=== PATIENT | female | born 1935 | race Caucasian/White ===

== ENCOUNTER 2016-10-12 14:21 | Inpatient (IN) | payer MEDICARE ==
[~2016-10-12] VITALS: Ht 160 cm; Wt 51.3 kg
--- NOTE | 2016-10-12 15:27 | RAD ---
Portable chest, 10/12/2016: History: Shortness of breath, productive cough Comparison is made to a study from 03/02/2015. The heart size and pulmonary vascularity are normal. There is calcific plaquing of the aorta. There are patchy infiltrates in the right lower chest suggesting pneumonia. The left lung is clear. No definite pleural fluid is seen. IMPRESSION: Mild patchy right basilar infiltrates suggesting pneumonia.
[2016-10-12 15:34] LABS: BASO # 0.1 x10^3/uL (0.0-0.2); BASO % 0 % (0-3); EOS % 0 % (0-3); HEMATOCRIT 32.4 % (36.0-47.0); HEMOGLOBIN 10.7 g/dL (12.0-15.5); LYMPH # 1.1 x10^3/uL (1.0-4.8); LYMPH % 9 % (24-48); MEAN CORPUSCULAR HEMOGLOBIN 30 pg (25-35); MEAN CORPUSCULAR HGB CONC 33 g/dL (31-37); MEAN CORPUSCULAR VOLUME 90 fL (79-100); MONO # 0.8 x10^3/uL (0.0-1.1); MONO % 7 % (0-9); NEUT # 10.3 x10^3uL (1.8-7.7); NEUT % 84 % (31-73); PLATELET COUNT 314 x10^3/uL (140-400); RED BLOOD COUNT 3.61 x10^6/uL (3.50-5.40); WHITE BLOOD COUNT 12.3 x10^3/uL (4.0-11.0)
[2016-10-12 15:47] LABS: CLARITY,URINE HAZY; COLOR,URINE YELLOW; GLUCOSE,URINE NEG (NEG)
[2016-10-12 15:48] LABS: BILIRUBIN,URINE NEG (NEG); NITRITE,URINE NEG (NEG); UROBILINOGEN,URINE 0.2 mg/dL (0.2 mg/dL)
[2016-10-12 15:49] LABS: BACTERIA,URINE 0 /HPF (0-FEW); SQUAMOUS EPITHELIAL CELL,UR MOD /LPF
[2016-10-12 15:50] LABS: ALBUMIN 2.6 g/dL (3.4-5.0); ALBUMIN/GLOBULIN RATIO 0.6 (1.0-1.7); CREATININE 1.4 mg/dL (0.6-1.0); POTASSIUM 3.2 mmol/L (3.5-5.1); TOTAL BILIRUBIN 0.4 mg/dL (0.2-1.0); TOTAL PROTEIN 7.1 g/dL (6.4-8.2)
[2016-10-12] MEDS ORDERED: IPRATRPIUM/ALBUTEROL 0.5/2.5MG 3 ML NEBU. NEB ONE (15:50)
[2016-10-12] MEDS ORDERED: IV NORMAL SALINE 1,000ML 1,000 ML IV ONE ×2 (15:50→16:30)
--- NOTE | 2016-10-12 15:55 | ED.ADGEN ---
Past History Past Medical History: Anxiety, Arthritis, COPD, Hypertension Past Surgical History: Appendectomy, Cancer Surgery, Colectomy, Tonsillectomy Alcohol Use: Heavy Drug Use: None Adult General HPI HPI Patient is an 81-year-old woman, history of hypertension, COPD, who presents to the emergency department with a complaint of productive cough and fever over the past 6 days. Patient has been using nebulizer treatments at home without relief, noted a cough that is productive of green sputum, with increasing shortness of breath, now complaining also of rib pain in the left side after repetitive coughing. Denies any weakness, numbness or tingling, complains of generalized malaise and weakness, last fever was up to 102, was yesterday, is also last times she received any antipyretics. Patient denies any urinary complaints, any nausea or vomiting, any diarrhea, any falls, any lightheadedness or dizziness. She states she is compliant with her blood pressure medications, did receive her Coreg this morning. Patient's daughter-in- law who is her commercial food instructor and a nurse in the ICU at [employer] is at bedside. Temperature is 99.0 orally, without receiving antipyretics since the day before , blood pressures are 160s over 70s, heart rate is in the 70s, oxygen saturation is between 92-95 on room air, respiratory rate in the mid 20s. Review of Systems Review of Systems Constitutional: Denies fever or chills [] Eyes: Denies change in visual acuity, redness, or eye pain [] HENT: Denies nasal congestion or sore throat [] Respiratory: Productive cough with shortness of breath 6 days. Soreness on the left ribs. Cardiovascular: No additional information not addressed in HPI [] GI: Denies abdominal pain, nausea, vomiting, bloody stools or diarrhea [] : Denies dysuria or hematuria [] Musculoskeletal: Denies back pain or joint pain [] Integument: Denies rash or skin lesions [] Neurologic: Denies headache, focal weakness or sensory changes [] Endocrine: Denies polyuria or polydipsia [] Current Medications Current Medications Current Medications Medications (Trade) Dose Ordered Sig/Mayela Start Time Stop Time Status Last Admin Dose Admin Acetaminophen (Tylenol) 650 mg PRN Q4HRS PRN 10/12/16 16:45 10/13/16 16:44 Albuterol/ Ipratropium (Duoneb) 3 ml RTQID 10/12/16 20:00 10/13/16 19:59 Azithromycin 500 mg/Sodium Chloride 250 ml @ 250 mls/hr Q24H 10/12/16 16:10 10/15/16 16:09 Ceftriaxone Sodium 1 gm/ Sodium Chloride 100 ml @ 200 mls/hr Q24H 10/12/16 16:10 10/12/16 16:15 200 MLS/HR Ceftriaxone Sodium (Rocephin) 1 gm STK-MED ONCE 10/12/16 16:09 10/12/16 16:10 DC Methylprednisolone Sodium Succinate (SOLU-Medrol 125MG VIAL) 125 mg 1X ONCE 10/12/16 17:00 10/12/16 17:01 Ondansetron HCl (Zofran) 4 mg PRN Q4HRS PRN 10/12/16 16:45 10/13/16 16:44 Potassium Chloride (KCl Oral Soln) 40 meq 1X ONCE 10/12/16 16:50 10/12/16 16:51 Sodium Chloride 1,000 ml @ 125 mls/hr 1X ONCE 10/12/16 16:30 10/13/16 00:29 Allergies Allergies Allergies Coded Allergies Type Severity Reaction Last Updated Verified lidocaine Adverse Reaction Intermediate 03/20/14 Yes Physical Exam Physical Exam Constitutional: Well developed, well nourished, no acute distress, non-toxic appearance. [] HENT: Normocephalic, atraumatic, bilateral external ears normal, oropharynx moist, no oral exudates, nose normal. [] Eyes: PERRLA, EOMI, conjunctiva normal, no discharge. [] Neck: Normal range of motion, no tenderness, supple, no stridor. [] Cardiovascular:Heart rate regular rhythm, no murmur [] Lungs & Thorax: Bilateral breath sounds clear to auscultation [] Abdomen: Bowel sounds normal, soft, no tenderness, no masses, no pulsatile masses. [] Skin: Warm, dry, no erythema, no rash. [] Back: No tenderness, no CVA tenderness. [] Extremities: No tenderness, no cyanosis, no clubbing, ROM intact, no edema. [] Neurologic: Alert and oriented X 3, normal motor function, normal sensory function, no focal deficits noted. [] Psychologic: Affect normal, judgement normal, mood normal. [] Current Patient Data Vital Signs Vital Signs Date Time Temp Pulse Resp B/P (MAP) Pulse Ox O2 Delivery O2 Flow Rate FiO2 10/12/16 14:30 99.0 87 18 95 Room Air Lab Results Laboratory Tests Test 10/12/16 15:10 10/12/16 16:00 White Blood Count 12.3 x10^3/uL (4.0-11.0) H Red Blood Count 3.61 x10^6/uL (3.50-5.40) Hemoglobin 10.7 g/dL (12.0-15.5) L Hematocrit 32.4 % (36.0-47.0) L Mean Corpuscular Volume 90 fL (79-100) Mean Corpuscular Hemoglobin 30 pg (25-35) Mean Corpuscular Hemoglobin Concent 33 g/dL (31-37) Red Cell Distribution Width 14.0 % (11.5-14.5) Platelet Count 314 x10^3/uL (140-400) Neutrophils (%) (Auto) 84 % (31-73) H Lymphocytes (%) (Auto) 9 % (24-48) L Monocytes (%) (Auto) 7 % (0-9) Eosinophils (%) (Auto) 0 % (0-3) Basophils (%) (Auto) 0 % (0-3) Neutrophils # (Auto) 10.3 x10^3uL (1.8-7.7) H Lymphocytes # (Auto) 1.1 x10^3/uL (1.0-4.8) Monocytes # (Auto) 0.8 x10^3/uL (0.0-1.1) Eosinophils # (Auto) 0.0 x10^3/uL (0.0-0.7) Basophils # (Auto) 0.1 x10^3/uL (0.0-0.2) Urine Collection Type Unknown Urine Color Yellow Urine Clarity Hazy Urine pH 6.0 Urine Specific [place] 1.020 Urine Protein 100 mg/dl (NEG-TRACE) Urine Glucose (UA) Neg mg/dL (NEG) Urine Ketones (Stick) Trace mg/dL (NEG) Urine Blood Small (NEG) Urine Nitrite Neg (NEG) Urine Bilirubin Neg (NEG) Urine Urobilinogen Dipstick 0.2 mg/dL (0.2 mg/dL) Urine Leukocyte Esterase Trace (NEG) Urine RBC 6-10 /HPF (0-2) Urine WBC 11-20 /HPF (0-4) Urine Squamous Epithelial Cells Mod /LPF Urine Bacteria 0 /HPF (0-FEW) Urine Mucus Mod /LPF Sodium Level 141 mmol/L (136-145) Potassium Level 3.2 mmol/L (3.5-5.1) L Chloride Level 103 mmol/L (98-107) Carbon Dioxide Level 29 mmol/L (21-32) Anion Gap 9 (6-14) Blood Urea Nitrogen 19 mg/dL (7-20) Creatinine 1.4 mg/dL (0.6-1.0) H Estimated GFR (Cockcroft-Gault) 36.0 BUN/Creatinine Ratio 14 (6-20) Glucose Level 134 mg/dL (70-99) H Calcium Level 9.0 mg/dL (8.5-10.1) Total Bilirubin 0.4 mg/dL (0.2-1.0) Aspartate Amino Transferase (AST) 20 U/L (15-37) Alanine Aminotransferase (ALT) 18 U/L (14-59) Alkaline Phosphatase 91 U/L (46-116) Troponin I Quantitative < 0.017 ng/mL (0-0.055) EO-Auu-S-Type Natriuretic Peptide 2637 pg/mL (0-449) H Total Protein 7.1 g/dL (6.4-8.2) Albumin 2.6 g/dL (3.4-5.0) L Albumin/Globulin Ratio 0.6 (1.0-1.7) L Lactic Acid Level 0.7 mmol/L (0.4-2.0) EKG EKG EC: Sinus rhythm, heart rate 78 bpm, upright axis, QTC of 420, CO 140, QRS of 88, [] Radiology/Procedures Radiology/Procedures [][address] [address] IMAGING REPORT Signed PATIENT: RUBY MAJOR ACCOUNT: [id number] : 1935 LOCATION: ER AGE: 81 SEX: F EXAM STATUS: REG ER ORD. PHYSICIAN: AMEE BREAUX DO REASON: SOB/productive cough PROCEDURE: PORTABLE CHEST 1V Portable chest, 10/12/2016: History: Shortness of breath, productive cough Comparison is made to a study from 03/02/2015. The heart size and pulmonary vascularity are normal. There is calcific plaquing of the aorta. There are patchy infiltrates in the right lower chest suggesting pneumonia. The left lung is clear. No definite pleural fluid is seen. IMPRESSION: Mild patchy right basilar infiltrates suggesting pneumonia. DICTATED AND SIGNED BY: TEX LOPEZ MD DATE: 10/12/16 1524 CC: MARISOL TRISTAN MD; AMEE BREAUX DO ~ Course & Med Decision Making Course & Med Decision Making Pertinent Labs and Imaging studies reviewed. (See chart for details) Patient noted to have mild rales at bases bilaterally, rhonchi in the right lung mid region, oxygen saturation is between 92-95% on room air respiratory rate is in the mid 20s. Patient noted to be expressing active and the monitor, occasional PVCs, and sinus arrhythmia. Patient received DuoNeb treatment in the ED, states that she is feeling better after the DuoNeb treatment, no significant lung changes noted. Chest x-ray reveals a right sided infiltrate consistent with pneumonia, after discussion with family and patient, patient has had no recent antibiotic use, hospitalization, or other concerning history, is consistent with community-acquired pneumonia. Lactic of 0.7, patient with hemoglobin of 10.7, which is around her baseline, noted to have a creatinine of 1.4, with a BUN of 19, potassium of 3.2. Patient's potassium repleted orally in the emergency department, IV fluids initiated, and then adjusted after proBNP of 2600 resulted, patient's lungs remain clear, adjusted to 500 L bolus, and is [place] 125 ML's an hour, as she clinically and biochemically dehydrated.Patient is agreeable for admission to the hospital for continued treatment and monitoring, due to generalized weakness, and worsening shortness of breath, with concern for continued decline, and also arrhythmia stated noted on monitor which is new for patient, may be due in part to the patient's illness and hypokalemia. Patient initiated on ceftriaxone and azithromycin per the community acquired pneumonia protocol. I did discuss findings as above with Dr. Begum of internal medicine, patient accepted to his service as a full admission to the medical telemetry floor for treatment acquired pneumonia, COPD , patient ordered DuoNeb's, steroids, continued antibiotics, IV fluids, repeat laboratory studies and cardiology consultation with bridge orders entered per discussion. Final Impression Final Impression [] Problems: Dragon Disclaimer Dragon Disclaimer This electronic medical record was generated, in whole or in part, using a voice recognition dictation system. Departure: Impression: Primary Impression: Community acquired pneumonia Additional Impression: COPD (chronic obstructive pulmonary disease) Disposition: 09 ADMITTED INPATIENT Condition: IMPROVED AMEE BREAUX DO Oct 12, 2016 15:55
[2016-10-12] MEDS ORDERED: IV NORMAL SALINE 100ML 100 ML ONE (16:09)
[2016-10-12] MEDS ORDERED: cefTRIAXone SODIUM 1 GM VIAL IV ONE (16:09)
[2016-10-12] MEDS ORDERED: AZITHROMYCIN 500 MG in IV NORMAL SALINE 250ML 250 ML IV SCH (16:10)
[2016-10-12] MEDS ORDERED: IV NORMAL SALINE 500ML 500 ML IV ONE (16:30)
[2016-10-12] MEDS ORDERED: ACETAMINOPHEN 325 MG TABLET PO PRN (16:45)
[2016-10-12] MEDS ORDERED: ONDANSETRON PF 4 MG/2 ML VIAL. IV PRN (16:45)
[2016-10-12] MEDS ORDERED: POTASSIUM CHLORIDE 20 MEQ/15 ML ORAL LIQUID. PO ONE (16:50)
[2016-10-12] MEDS ORDERED: methylPREDNISolone SOD SUCC PF 125 MG/2 ML VIAL. IV ONE (17:00)
[2016-10-12] MEDS ORDERED: NICOTINE 7MG PATCH. TD PRN (17:30)
[2016-10-12] MEDS ORDERED: IV NORMAL SALINE 250ML 250 ML ONE (17:32)
[2016-10-12] MEDS ORDERED: AZITHROMYCIN 500 MG VIAL. IV ONE (17:32)
--- NOTE | 2016-10-12 17:41 | EKG ---
[address] [address] Test Date: 2016-10-12 Test Time: 14:59:57 Pat Name: RUBY MAJOR Department: Room: Gender: F Labeling Machine Operator: RAMSEY : 1935 Requested By: AMEE BREAUX Order Number: [id number] Reading MD: Measurements Intervals [place] Rate: 78 P: 64 ND: 140 QRS: 64 QRSD: 88 T: 68 QT: 372 QTc: 428 Interpretive Statements SINUS RHYTHM VENTRICULAR PREMATURE COMPLEX(ES) T ABNORMALITY IN INFERIOR LEADS NON SPECIFIC ST DEPRESSION RI6.01 Unconfirmed report No previous ECG available for comparison
[2016-10-12 18:29] VITALS: BP 137/70
[2016-10-12] MEDS ORDERED: CARV6.25 PO ×2 (18:38)
[2016-10-12] MEDS ORDERED: LISI10TA2 PO (18:38)
[2016-10-12] MEDS ORDERED: ASPI-630 PO (18:38)
[2016-10-12] MEDS ORDERED: LISI-338 PO (18:38)
[2016-10-12] MEDS: CARVEDILOL 6.25 MG TABLET PO SCH (20:11)
[2016-10-12] MEDS: LISINOPRIL 5 MG TABLET. PO SCH (20:11)
[2016-10-12] MEDS: IPRATRPIUM/ALBUTEROL 0.5/2.5MG 3 ML NEBU. NEB SCH (20:34)
[2016-10-12 22:06] VITALS: BP 116/66
--- NOTE | 2016-10-13 01:45 | ACF ---
Admission Criteria Forms PNEUMONIA, COMMUNITY ACQUIRED Clinical Indications for Admission to Inpatient Care (Place 'X' for any and all applicable criteria): Admission to inpatient status for two midnights or more is indicated for ANY ONE of the following (1)(2)(3): [ ]I. Hypoxia [ ]II. Hemodynamic instability [ ]III. Altered mental status that is severe or persistent [ ]IV. Dehydration that is severe or persistent. [ ]V. Bacteremia [X]. Moderate-risk or high-risk category patients (Pneumonia Severity Index ( PSI) class IV or V, or CURB-65 score of 3 or greater). [ ]VII. Intermediate-risk category patients (e.g., PSI class III or CURB-65 score 2) who do not improve with outpatient and observation care treatment [ ]VIII. Outpatient treatment failure as indicated by 1 or more of the following(9): [ ]a) Failure to respond to antibiotic (eg, resistant organism) [ ]b) Clinically significant adverse effects from medication (eg, vomiting) [ ]c) Complications of pneumonia (eg, empyema, bacteremia) [ ]d) Significant worsening of comorbid cond necessitating inpatient care (eg, chronic heart failure) [ ]IX. Appropriate diagnostic testing and treatment unavailable in outpatient or recovery facility (eg, testing or infection control measures unavailable) [ ]X. Respiratory finding (eg. tachypnea) that do not respond to outpatient observation care treatment [ ]XI. Complicated pleural effusions (eg, emphysema, exudative, loculated) [ ]XII. Immunocompromised patients (e.g., AIDS, chronic steroid use) at moderate or high risk based on clinical evaluation. Extended stay beyond goal length of stay may be needed for (20) [ ]a) Unclear diagnosis [ ]b) Pleural disease [ ]c) Severe pneumonia or treatment failure [ ]d) Respiratory failure [ ]e) New onset hyponatremia (serum Na concentration less than 135 mEq/L(mmol/ L) [ ]f) Clinically significant comorbid illness (eg, heart failure, atrial fibrillation with rapid heart rate, alcohol withdrawal, renal insufficiency)(34)(35) [ ]g) Comorbid acute exacerbation of COPD(36) [ ]h) Concomitant diagnosis of malignancy [ ]i) Concomitant altered mental status [ ]j) Culture-identified Gram-negative or antibiotic-resistant organism (eg, Pseudomonas, methicillin-resistant Staphylococcus aureus MRSA)(30) [ ]k) Healthcare-associated pneumonia (36) The original [facility] [employer] content created by [facility] has been revised. The portions of the content which have been revised are identified through the use of italic text, and [facility] has neither reviewed nor approved the modified material. All other unmodified content is copyright [facility]. Please see references footnoted in the original [facility] edition 2015 Admission Criteria Met?: Yes LO WEBB Oct 13, 2016 01:45
[2016-10-13 03:07] VITALS: BP 177/68
[2016-10-13] MEDS: IPRATRPIUM/ALBUTEROL 0.5/2.5MG 3 ML NEBU. NEB SCH ×4 (05:51→20:43)
[2016-10-13 05:58] VITALS: BP 177/73
[2016-10-13 06:07] LABS: CREATININE 1.1 mg/dL (0.6-1.0); GFR 47.6; POTASSIUM 3.9 mmol/L (3.5-5.1)
[2016-10-13 06:16] LABS: BASO % 0 % (0-3); EOS % 0 % (0-3); HEMATOCRIT 26.1 % (36.0-47.0); HEMOGLOBIN 8.8 g/dL (12.0-15.5); LYMPH # 0.5 x10^3/uL (1.0-4.8); LYMPH % 7 % (24-48); MEAN CORPUSCULAR HEMOGLOBIN 30 pg (25-35); MEAN CORPUSCULAR HGB CONC 34 g/dL (31-37); MEAN CORPUSCULAR VOLUME 90 fL (79-100); MONO # 0.1 x10^3/uL (0.0-1.1); MONO % 1 % (0-9); NEUT # 6.8 x10^3uL (1.8-7.7); NEUT % 92 % (31-73); PLATELET COUNT 249 x10^3/uL (140-400); RED BLOOD COUNT 2.91 x10^6/uL (3.50-5.40); RED CELL DISTRIBUTION WIDTH 13.6 % (11.5-14.5); WHITE BLOOD COUNT 7.4 x10^3/uL (4.0-11.0)
[2016-10-13] MEDS: CARVEDILOL 6.25 MG TABLET PO SCH ×2 (08:21→20:25)
[2016-10-13] MEDS: ASPIRIN 81 MG TAB.CHEW PO SCH (08:21)
[2016-10-13] MEDS: guaiFENesin DM 200MG/20MG 10 ML SYRUP PO PRN ×2 (08:23→12:30)
[2016-10-13] MEDS ORDERED: LISINOPRIL 10 MG TABLET PO SCH (09:00)
[2016-10-13] MEDS ORDERED: chlordiazePOXIDE HCL 25 MG CAPSULE PO PRN (10:45)
--- NOTE | 2016-10-13 11:14 | HP ---
ADMIT DATE: 10/13/2016 HISTORY OF PRESENT ILLNESS: The patient is an 81-year-old female patient, who came to the Emergency Room with complaints of recurrent bouts of cough with greenish sputum that has been going on for almost 6 days now. She has been using her nebulizer treatment without much improvement. She also complained of increasing shortness of breath and chest pain, mostly in the left side after repetitive bouts of cough. Denies any localized weakness, numbness and tingling, but did complain of generalized malaise and generalized weakness, fever up to 102 Fahrenheit. She was evaluated in the Emergency Room and was found to have leukocytosis. Her chest x-ray showed mild patchy right-sided infiltrate suggesting pneumonia, was admitted to be treated for community-acquired pneumonia and COPD exacerbations. PAST MEDICAL HISTORY: Significant for hypertension, chronic obstructive pulmonary disease, generalized osteoarthritis and anxiety. PAST SURGICAL HISTORY: Significant for appendectomy, colectomy, tonsillectomy. FAMILY HISTORY: Unremarkable. SOCIAL HISTORY: She lives with her son and his girlfriend. She apparently drinks alcohol heavily, but does not smoke or use any recreational drugs. ALLERGIES: She is allergic to LIDOCAINE. MEDICATIONS: She is currently on following medications: Aspirin 81 mg once a day. Carvedilol 6.25 mg she takes one and a half tablet daily and 6.25 mg at bedtime. She is on lisinopril 10 mg daily and 5 mg at bedtime. REVIEW OF SYSTEMS: As per history of present illness. PHYSICAL EXAMINATION: GENERAL: On arrival to the Emergency Room, the patient was pale, cachectic, but not jaundiced, cyanosis or thyromegaly. No jugular venous distention. No lower limb edema. VITAL SIGNS: Her heart rate was , blood pressure was 99.7, respiratory rate was 20 and oxygen saturation was 94% on room air. HEAD, EYES, EARS, NOSE AND THROAT: Showed normocephalic, atraumatic. NECK: Supple. HEART: Showed normal first and second heart sounds with no gallop, rub or murmur. CHEST: Showed central trachea, equally reduced expansion, reduced air entry, vesicular crepitation mostly in the right side posteriorly. I could not really appreciate any rhonchi. ABDOMEN: Scaphoid, soft, nontender. NEUROLOGIC: She is awake, alert, responding appropriately. Cranial nerves intact. She moves her extremities without difficulty. She ambulates without assistance or assistive devices. LABORATORY DATA: While in the Emergency Room, she had lab work done, which showed a white cell count 12,300, hemoglobin 10.7, hematocrit 32.4, MCV 90 and platelet count of 314,000. Her chemistry showed a serum sodium 141, potassium 3.2, chloride 103, bicarbonate 29, anion gap of 9, BUN 19, creatinine 1.4, estimated GFR was 36 mL per minute. Her glucose was 134, lactic acid was 0.7, calcium was 9. Total bilirubin, AST, ALT, alkaline phosphatase were normal. Her beta natriuretic peptide was 2637. Total protein was 7.1, albumin was 2.6. Urinalysis was essentially unremarkable and urine was actually negative for nitrite. There was trace leukocyte. There was only 11 to 20 wbc's, no bacteria. Chest x-ray showed that she has mild patchy right basilar infiltrate suggestive of pneumonia. The heart size and pulmonary vascularity are normal. There is ischemic plaquing in the aorta. The left lung is clear. No definite pleural fluid or pneumothorax seen. ASSESSMENT AND PLAN: The patient was admitted with diagnosis of community-acquired pneumonia, chronic obstructive pulmonary disease, hypertension, anxiety, generalized osteoarthritis. She was started on IV Rocephin and Zithromax. We will follow her labs closely. She drinks alcohol heavily, something that was not made aware of, will start her also on alcohol withdrawal protocol and will evaluate her tomorrow and if she seemed to be responding well and continued to be afebrile with normal white cell count, we can discharge her home to continue on oral antibiotics. DEEPIKA GREENFIELD MD DR: KATERIN/dimitry JOB#: [id number] / [id number]
[2016-10-13] MEDS: FOLIC ACID 1 MG TABLET PO SCH (11:40)
[2016-10-13] MEDS: MULTIVITAMIN with MINERAL TABLET. PO SCH (11:40)
[2016-10-13 11:54] VITALS: BP 181/77
[2016-10-13] MEDS ORDERED: HYDR50CA2 PO (12:34)
--- NOTE | 2016-10-13 13:41 | PDOC2 ---
CONSULT Date of Admission DATE: 10/13/16 TIME: 13:30 Reason for Consult: chest pain Referring Physician: Dr. Begum Chief Complaint Chest pain Source: Patient Problem List Problems Medical Problems: (1) Community acquired pneumonia Status: Acute (2) COPD (chronic obstructive pulmonary disease) Status: Acute History of Present Illness 81 y/o female presented with 6-7 day history of cough productive of greenish sputum and dyspnea. She was diagnosed with community acquired pneumonia and acute COPD exacerbation and admitted for further management. She is feeling better since admission. Cardiology has been consulted for chest pain that started after repeated bouts of coughing. Past Medical History Hypertension COPD Osteoarthritis Anxiety Past Surgical History Appendectomy Cholecystectomy Tonsillectomy Social History Admitted to smoking cigarettes and moderate to heavy alcohol use. Denied any drug use Current Medications Current Medications Albuterol/ Ipratropium (Duoneb) 3 ml 1X ONCE NEB Last administered on 14:55; Start 10/12/16 at 15:50; Stop 10/12/16 at 15:51; Status DC Sodium Chloride 1,000 ml @ 1,000 mls/hr 1X ONCE IV Last administered on 16:00; Start 10/12/16 at 15:50; Stop 10/12/16 at 16:26; Status DC Ceftriaxone Sodium 1 gm/ Sodium Chloride 100 ml @ 200 mls/hr Q24H IV Last administered on 10/12/16 16:15; Start 10/12/16 at 16:10 Azithromycin 500 mg/Sodium Chloride 250 ml @ 250 mls/hr Q24H IV Last administered on 10/12/16 17:46; Start 10/12/16 at 16:10; Stop 10/13/16 at 11:26 ; Status DC Sodium Chloride 100 ml @ As Directed STK-MED ONCE .ROUTE ; Start 10/12/16 at 16 :09; Stop 10/12/16 at 16:10; Status DC Ceftriaxone Sodium (Rocephin) 1 gm STK-MED ONCE IV ; Start 10/12/16 at 16:09; Stop 10/12/16 at 16:10; Status DC Potassium Chloride (KCl Oral Soln) 40 meq 1X ONCE PO Last administered on 10/12 16:44; Start 10/12/16 at 16:50; Stop 10/12/16 at 16:51; Status DC Sodium Chloride 500 ml @ 0 mls/hr 1X ONCE IV ; Start 10/12/16 at 16:30; Stop at 16:31; Status DC Sodium Chloride 1,000 ml @ 125 mls/hr 1X ONCE IV Last administered on 19:38; Start 10/12/16 at 16:30; Stop 10/13/16 at 00:29; Status DC Ondansetron HCl (Zofran) 4 mg PRN Q4HRS PRN IV NAUSEA/VOMITING; Start 10/12/16 at 16:45; Stop 10/13/16 at 16:44 Acetaminophen (Tylenol) 650 mg PRN Q4HRS PRN PO FEVER; Start 10/12/16 at 16:45 ; Stop 10/13/16 at 16:44 Albuterol/ Ipratropium (Duoneb) 3 ml RTQID NEB Last administered on 10/13/16 11:30; Start 10/12/16 at 20:00; Stop 10/13/16 at 19:59 Methylprednisolone Sodium Succinate (SOLU-Medrol 125MG VIAL) 125 mg 1X ONCE IV Last administered on 10/12/16 17:00; Start 10/12/16 at 17:00; Stop 10/12/16 at 17:01; Status DC Nicotine (Nicoderm Cq 7mg) 1 patch PRN DAILY PRN TD SMOKING CESSATION; Start at 17:30 Azithromycin (Zithromax) 500 mg STK-MED ONCE IV ; Start 10/12/16 at 17:32; Stop 10/12/16 at 17:33; Status DC Sodium Chloride 250 ml @ As Directed STK-MED ONCE .ROUTE ; Start 10/12/16 at 17 :32; Stop 10/12/16 at 17:33; Status DC Aspirin (Children'S Aspirin) 81 mg DAILY PO Last administered on 10/13/16 08: 21; Start 10/13/16 at 09:00 Carvedilol (Coreg) 6.25 mg HS PO Last administered on 10/12/16 20:11; Start at 21:00 Carvedilol (Coreg) 9.375 mg DAILY PO Last administered on 10/13/16 08:21; Start 10/13/16 at 09:00 Lisinopril (Prinivil) 5 mg HS PO Last administered on 10/12/16 20:11; Start at 21:00 Lisinopril (Prinivil) 10 mg DAILY PO Last administered on 10/13/16 08:22; Start 10/13/16 at 09:00 Guaifenesin (Robitussin Dm) 5 ml PRN Q4HRS PRN PO COUGH Last administered on 12:30; Start 10/13/16 at 08:15 Multivitamins/ Calcium (Thera-M Plus) 1 tab DAILY PO Last administered on 11:40; Start 10/13/16 at 11:10 Folic Acid (Folic Acid) 1 mg DAILY PO Last administered on 10/13/16 11:40; Start 10/13/16 at 11:10 Thiamine HCl 100 mg DAILY IM ; Start 10/14/16 at 11:10; Stop 10/19/16 at 11:09 Chlordiazepoxide (Librium) 50 mg PRN Q1HR PRN PO For CIWA 8-14; Start 10/13/16 at 10:45; Status Future Hold Azithromycin (Zithromax) 500 mg Q24H PO ; Start 10/13/16 at 16:00 Hydroxyzine Pamoate (Vistaril) 50 mg QHS PO ; Start 10/13/16 at 21:00 Active Scripts Active Reported Hydroxyzine Pamoate 50 Mg Capsule 50 Mg PO DAILY Aspirin 81 Mg Tab.chew 81 Mg PO DAILY Coreg (Carvedilol) 6.25 Mg Tablet 1 Tab PO HS Coreg (Carvedilol) 6.25 Mg Tablet 1.5 Tab PO DAILY Lisinopril 5 Mg Tablet 1 Tab PO HS Lisinopril 10 Mg Tablet 1 Tab PO DAILY Allergies: Coded Allergies: lidocaine (Verified Adverse Reaction, Intermediate, 03/20/14) PSYCHOLOGICAL ROS: No: Hallucinations Eyes: No: Loss of vision HEENT: No: Epistaxis Respiratory: YES: Cough, Shortness of breath Cardiovascular: yes: Chest Pain, No: Palpitations Gastrointestinal: No: Vomiting, Diarrhea Neurological: No: Seizures Skin: No: Rash General: Alert, No acute distress HEENT: Atraumatic, PERRLA Lungs: Other (scattered crepts bilaterally) Heart: Regular rate Abdomen: Soft Extremities: No edema Psych/Mental Status: Mood NL VITALS Vital Signs Date Time Temp Pulse Resp B/P (MAP) Pulse Ox O2 Delivery O2 Flow Rate FiO2 10/13/16 11:54 97.6 74 16 181/77 (111) 97 Room Air Labs Laboratory Tests Test 10/12/16 15:10 10/12/16 16:00 10/13/16 05:45 White Blood Count 12.3 x10^3/uL (4.0-11.0) 7.4 x10^3/uL (4.0-11.0) Red Blood Count 3.61 x10^6/uL (3.50-5.40) 2.91 x10^6/uL (3.50-5.40) Hemoglobin 10.7 g/dL (12.0-15.5) 8.8 g/dL (12.0-15.5) Hematocrit 32.4 % (36.0-47.0) 26.1 % (36.0-47.0) Mean Corpuscular Volume 90 fL (79-100) 90 fL (79-100) Mean Corpuscular Hemoglobin 30 pg (25-35) 30 pg (25-35) Mean Corpuscular Hemoglobin Concent 33 g/dL (31-37) 34 g/dL (31-37) Red Cell Distribution Width 14.0 % (11.5-14.5) 13.6 % (11.5-14.5) Platelet Count 314 x10^3/uL (140-400) 249 x10^3/uL (140-400) Neutrophils (%) (Auto) 84 % (31-73) 92 % (31-73) Lymphocytes (%) (Auto) 9 % (24-48) 7 % (24-48) Monocytes (%) (Auto) 7 % (0-9) 1 % (0-9) Eosinophils (%) (Auto) 0 % (0-3) 0 % (0-3) Basophils (%) (Auto) 0 % (0-3) 0 % (0-3) Neutrophils # (Auto) 10.3 x10^3uL (1.8-7.7) 6.8 x10^3uL (1.8-7.7) Lymphocytes # (Auto) 1.1 x10^3/uL (1.0-4.8) 0.5 x10^3/uL (1.0-4.8) Monocytes # (Auto) 0.8 x10^3/uL (0.0-1.1) 0.1 x10^3/uL (0.0-1.1) Eosinophils # (Auto) 0.0 x10^3/uL (0.0-0.7) 0.0 x10^3/uL (0.0-0.7) Basophils # (Auto) 0.1 x10^3/uL (0.0-0.2) 0.0 x10^3/uL (0.0-0.2) Urine Collection Type Unknown Urine Color Yellow Urine Clarity Hazy Urine pH 6.0 Urine Specific [place] 1.020 Urine Protein 100 mg/dl (NEG-TRACE) Urine Glucose (UA) Neg mg/dL (NEG) Urine Ketones (Stick) Trace mg/dL (NEG) Urine Blood Small (NEG) Urine Nitrite Neg (NEG) Urine Bilirubin Neg (NEG) Urine Urobilinogen Dipstick 0.2 mg/dL (0.2 mg/dL) Urine Leukocyte Esterase Trace (NEG) Urine RBC 6-10 /HPF (0-2) Urine WBC 11-20 /HPF (0-4) Urine Squamous Epithelial Cells Mod /LPF Urine Bacteria 0 /HPF (0-FEW) Urine Mucus Mod /LPF Sodium Level 141 mmol/L (136-145) 143 mmol/L (136-145) Potassium Level 3.2 mmol/L (3.5-5.1) 3.9 mmol/L (3.5-5.1) Chloride Level 103 mmol/L (98-107) 111 mmol/L (98-107) Carbon Dioxide Level 29 mmol/L (21-32) 24 mmol/L (21-32) Anion Gap 9 (6-14) 8 (6-14) Blood Urea Nitrogen 19 mg/dL (7-20) 20 mg/dL (7-20) Creatinine 1.4 mg/dL (0.6-1.0) 1.1 mg/dL (0.6-1.0) Estimated GFR (Cockcroft-Gault) 36.0 47.6 BUN/Creatinine Ratio 14 (6-20) Glucose Level 134 mg/dL (70-99) 186 mg/dL (70-99) Calcium Level 9.0 mg/dL (8.5-10.1) 8.0 mg/dL (8.5-10.1) Total Bilirubin 0.4 mg/dL (0.2-1.0) Aspartate Amino Transf (AST/SGOT) 20 U/L (15-37) Alanine Aminotransferase (ALT/SGPT) 18 U/L (14-59) Alkaline Phosphatase 91 U/L (46-116) Troponin I Quantitative < 0.017 ng/mL (0-0.055) DB-Ozn-F-Type Natriuretic Peptide 2637 pg/mL (0-449) Total Protein 7.1 g/dL (6.4-8.2) Albumin 2.6 g/dL (3.4-5.0) Albumin/Globulin Ratio 0.6 (1.0-1.7) Lactic Acid Level 0.7 mmol/L (0.4-2.0) Assessment/Plan 1. Chest pain with atypical features: most probably musculoskeletal secondary to cough. IL ruled out. We will consider stress test as outpatient. 2. Elevated BNP level: probably secondary to pneumonia. No clinical evidence for fluid overload/CHF 3. Pneumonia: IV antibiotics per IM 4. Hypertension: BP elevated. Increase lisinopril to 20 mg daily Thank you for your consultation. Problems: MARTINA GORMAN MD Oct 13, 2016 13:41
[2016-10-13 15:03] VITALS: BP 194/63
[2016-10-13] MEDS: AZITHROMYCIN 250 MG TABLET. PO SCH (16:19)
[2016-10-13 18:40] VITALS: BP 182/79
[2016-10-13] MEDS: hydrOXYzine PAMOATE 25 MG CAPSULE PO SCH (20:24)
[2016-10-13] MEDS: LISINOPRIL 5 MG TABLET. PO SCH (20:25)
[2016-10-13 22:24] VITALS: BP 144/56
--- NOTE | 2016-10-14 01:26 | PN ---
DATE: 10/13/2016 SUBJECTIVE: The patient is resting slightly propped up in bed, in no apparent respiratory distress. She continued to complain of cough, although she generally feels much better. Compared to yesterday, she is afebrile. We did start her on IV Zithromax and Rocephin. PHYSICAL EXAMINATION: GENERAL: When I examined her, she was resting slightly propped up, in no apparent respiratory distress, pale, somewhat cachectic, but no jaundice, cyanosis, or thyromegaly. No jugular venous distention. No lymphedema. VITAL SIGNS: Her heart rate was 65, blood pressure 177/73, temperature was 97.6, respiratory rate was 20, and oxygen saturation was 94%. HEAD, EYES, EARS, NOSE AND THROAT: Normocephalic, atraumatic. NECK: Supple. HEART: Showed normal first and second heart sounds with no gallop, rub or murmur. CHEST: Shows central trachea, equally reduced expansion, air entry, vesicular sounds. Crepitation is mostly in the right side posteriorly. I could not appreciate any rhonchi. ABDOMEN: Distended, soft, nontender. NEUROLOGIC: She is awake, alert, responding appropriately. Cranial nerves are intact. She moves extremities without difficulty. She ambulates without assistance or assistive devices. LABORATORY DATA: As of this morning showed a white cell count is down to 7400, hemoglobin 8.8, hematocrit 26.1, MCV 90 and platelet count 249,000. Her chemistry showed at this time sodium of 143, potassium 3.9, chloride 111, bicarbonate 24, anion gap of 8, BUN 20, creatinine 1.1, estimated GFR was 47 mL per minute. Her glucose was 186, calcium was 8. ASSESSMENT AND PLAN: 1. Community-acquired pneumonia with right-sided infiltrate for which she is now on Rocephin and Zithromax. 2. Hypokalemia, resolved. Her serum sodium has risen from 3.2-3.9. 3. Acute kidney injury with creatinine that was dropped down to 1.1 from 1.4. 4. Chronic obstructive pulmonary disease. 5. Hypertension. 6. Anxiety. 7. Osteoarthritis. She is also heavy on alcohol drinking and her blood pressure is probably high reflecting that. We will start her also on alcohol withdrawal protocol, repeat all her lab work tomorrow and decide on further management accordingly. DEEPIKA GREENFIELD MD DR: Ching JOB#: [id number] / [id number]
[2016-10-14 05:16] VITALS: BP 175/73
[2016-10-14 05:51] LABS: ALBUMIN 2.3 g/dL (3.4-5.0); ALBUMIN/GLOBULIN RATIO 0.6 (1.0-1.7); CALCIUM 8.5 mg/dL (8.5-10.1); CREATININE 1.3 mg/dL (0.6-1.0); GFR 39.2; POTASSIUM 4.5 mmol/L (3.5-5.1); TOTAL BILIRUBIN 0.2 mg/dL (0.2-1.0); TOTAL PROTEIN 6.1 g/dL (6.4-8.2)
[2016-10-14 05:58] LABS: HEMATOCRIT 26.4 % (36.0-47.0); HEMOGLOBIN 8.8 g/dL (12.0-15.5); RED BLOOD COUNT 2.94 x10^6/uL (3.50-5.40); RED CELL DISTRIBUTION WIDTH 13.9 % (11.5-14.5)
[2016-10-14] MEDS: IPRATRPIUM/ALBUTEROL 0.5/2.5MG 3 ML NEBU. NEB SCH ×4 (06:04→20:23)
[2016-10-14 07:36] LABS: HEMATOCRIT 24.9 % (36.0-47.0); HEMOGLOBIN 8.3 g/dL (12.0-15.5); RED BLOOD COUNT 2.77 x10^6/uL (3.50-5.40); RED CELL DISTRIBUTION WIDTH 13.7 % (11.5-14.5); WHITE BLOOD COUNT 19.5 x10^3/uL (4.0-11.0)
[2016-10-14] MEDS: ASPIRIN 81 MG TAB.CHEW PO SCH (08:06)
[2016-10-14] MEDS: CARVEDILOL 6.25 MG TABLET PO SCH ×2 (08:06→20:35)
[2016-10-14] MEDS: MULTIVITAMIN with MINERAL TABLET. PO SCH (08:07)
[2016-10-14] MEDS: LISINOPRIL 20 MG TABLET PO SCH (08:07)
[2016-10-14] MEDS: FOLIC ACID 1 MG TABLET PO SCH (08:07)
[2016-10-14] MEDS ORDERED: 0.9 % SODIUM CHLORIDE 10 ML DISP.SYRIN. IV PRN (10:45)
[2016-10-14 10:57] VITALS: BP 169/67
[2016-10-14] MEDS: THIAMINE IM 200 MG/2 ML VIAL. IM SCH (11:10)
[2016-10-14 15:19] VITALS: BP 142/72
[2016-10-14] MEDS: AZITHROMYCIN 250 MG TABLET. PO SCH (16:44)
[2016-10-14 18:19] VITALS: BP 176/74
[2016-10-14] MEDS: hydrOXYzine PAMOATE 25 MG CAPSULE PO SCH (20:34)
[2016-10-14] MEDS: LISINOPRIL 5 MG TABLET. PO SCH (20:35)
[2016-10-14 22:57] VITALS: BP 196/77
--- NOTE | 2016-10-15 00:33 | PN ---
DATE: 10/14/2016 SUBJECTIVE: The patient is resting slightly propped up in bed, no apparent distress. She feels generally much better, has regained some strength back. She has had no more cough or shortness of breath. However, her white cell count for some reason has dramatically risen from 7.4-21,000. PHYSICAL EXAMINATION: GENERAL: When I examined her; however, she looked well and was clearly in no apparent respiratory distress, pale. No jaundice, cyanosis, or thyromegaly. No jugular venous distention. No limb edema. VITAL SIGNS: Her heart rate was 72, blood pressure 169/67, temperature was 98.2, respiratory rate was 16, and oxygen saturation was 96% on room air. HEAD, EYES, EARS, NOSE, AND THROAT: Showed normocephalic, atraumatic. NECK: Supple. HEART: Showed normal first and second heart sounds with no gallop, rub, or murmur. CHEST: Clear to auscultation with crepitation mostly in the right side posteriorly. I could not really appreciate any rhonchi. ABDOMEN: Scaphoid, soft, nontender. NEUROLOGIC: She is awake, alert, responding appropriately. Her cranial nerves intact. She moves extremities without difficulty. She ambulates without assistance or assistive devices. Her intake over the last 24 hours was 1300, output was 500. LABORATORY DATA: Her lab work this morning showed white cell count 21,000, hemoglobin 8.8, hematocrit 26.4, MCV 90 and platelet count of 309,000. Her chemistry showed serum sodium 141, potassium 4.5, chloride 107, bicarbonate 24, anion gap of 10, BUN 18, creatinine 1.3, estimated GFR was 39 mL per minute. Her glucose 123. Lactic acid went up to 1.6, calcium was 8.5. Total bilirubin, AST, ALT, alkaline phosphatase were normal. Her total protein was 6.1, albumin 2.3. Her blood culture so far negative. Her chest x-ray showed that she has mild patchy right basilar infiltrate suggesting pneumonia. I spoke at length with the patient and recommended that she stay one more night to continue with IV Rocephin and Zithromax. We will repeat her labs tomorrow, also a chest x-ray to make sure that there is no parapneumonic effusion that might be the reason for the dramatic rise in her white cell count and if she remains stable tomorrow, I also suggested that we should give her more of the chlordiazepoxide as her blood pressure is probably manifestation of her perhaps alcohol withdrawal as she drinks alcohol heavily. DEEPIKA GREENFIELD MD DR: KATERIN/dimitry JOB#: [id number] / [id number]
[2016-10-15] MEDS: IPRATRPIUM/ALBUTEROL 0.5/2.5MG 3 ML NEBU. NEB SCH ×2 (05:34→11:12)
[2016-10-15 06:00] LABS: BASO % 0 % (0-3); EOS # 0.1 x10^3/uL (0.0-0.7); EOS % 1 % (0-3); HEMATOCRIT 25.6 % (36.0-47.0); HEMOGLOBIN 8.8 g/dL (12.0-15.5); LYMPH # 2.1 x10^3/uL (1.0-4.8); LYMPH % 17 % (24-48); MEAN CORPUSCULAR HEMOGLOBIN 31 pg (25-35); MEAN CORPUSCULAR HGB CONC 34 g/dL (31-37); MEAN CORPUSCULAR VOLUME 89 fL (79-100); MONO # 0.8 x10^3/uL (0.0-1.1); MONO % 7 % (0-9); NEUT % 75 % (31-73); PLATELET COUNT 302 x10^3/uL (140-400); RED BLOOD COUNT 2.88 x10^6/uL (3.50-5.40); RED CELL DISTRIBUTION WIDTH 13.9 % (11.5-14.5)
[2016-10-15 06:15] VITALS: BP 183/78
[2016-10-15 06:16] LABS: ALBUMIN 2.1 g/dL (3.4-5.0); ALBUMIN/GLOBULIN RATIO 0.6 (1.0-1.7); CALCIUM 8.2 mg/dL (8.5-10.1); CREATININE 1.3 mg/dL (0.6-1.0); GFR 39.2; POTASSIUM 4.4 mmol/L (3.5-5.1); TOTAL BILIRUBIN 0.2 mg/dL (0.2-1.0); TOTAL PROTEIN 5.7 g/dL (6.4-8.2)
[2016-10-15 06:32] LABS: FECAL OB PT NEGATIVE (NEG)
[2016-10-15] MEDS: MULTIVITAMIN with MINERAL TABLET. PO SCH (08:29)
[2016-10-15] MEDS: FOLIC ACID 1 MG TABLET PO SCH (08:29)
[2016-10-15] MEDS: ASPIRIN 81 MG TAB.CHEW PO SCH (08:29)
[2016-10-15] MEDS: THIAMINE IM 200 MG/2 ML VIAL. IM SCH (08:30)
[2016-10-15] MEDS: LISINOPRIL 20 MG TABLET PO SCH (08:30)
[2016-10-15] MEDS: CARVEDILOL 6.25 MG TABLET PO SCH (08:30)
[2016-10-15 10:14] VITALS: BP 173/71
[2016-10-15] MEDS ORDERED: LIDOCAINE (700MG/PATCH) PATCH. TD SCH (10:45)
[2016-10-15] MEDS ORDERED: ACETAMINOPHEN 500 MG TABLET PO ONE (11:00)
[2016-10-15] MEDS ORDERED: guaiFENesin DM 600/30MG 1 TAB TAB.ER.12H PO SCH (11:00)
--- NOTE | 2016-10-15 12:43 | RAD ---
Chest, 2 views, 10/15/2016: History: Pneumonia Comparison is made to a study from 10/12/2016. The heart size is normal. There are persistent patchy infiltrates in the right lung. Allowing for differences in patient positioning the infiltrates are probably unchanged. There are a few scattered parenchymal scars. The lungs appear hyperexpanded suggesting emphysema. No left lung consolidation is seen. No definite pleural fluid is identified. IMPRESSION: Persistent patchy right lung infiltrates again suggesting pneumonia.
[2016-10-15] MEDS ORDERED: CEFP200T PO (13:28)
--- NOTE | 2016-10-15 13:33 | RAD ---
Cervical spine plain films Indication: Neck pain after chiropractic manipulation one week ago Technique: 6 views of the cervical spine Comparison: None Findings: Loss of normal cervical lordosis which may be secondary to positioning or muscle spasm. There is no malalignment on flexion and extension views, specifically there is no widening of the atlantoaxial joint. Mild loss of vertebral body heights noted at C5, C6 with associated disc space narrowing, endplate sclerosis and anterior and posterior osteophytosis compatible with moderate to severe degenerative disc disease. Multilevel facet and uncovertebral joint arthropathy. Prevertebral soft tissues are within normal limits. Visualized lungs are clear. Visualized paranasal sinuses are clear. Impression: No evidence of cervical spine malalignment on extension and flexion views. Multilevel degenerative disc disease with facet joint and uncovertebral joint arthritis. MTDD
[2016-10-15 14:49] VITALS: BP 132/80
[2016-10-15 14:52] VITALS: BP 132/80
[2016-10-15] MEDS: AZITHROMYCIN 250 MG TABLET. PO SCH (16:04)
--- NOTE | 2016-10-15 21:50 | DS ---
DATE OF DISCHARGE: 10/15/2016 DISCHARGE DIAGNOSES: 1. Right basilar pneumonia. 2. Tobacco use disorder. 3. Chronic obstructive pulmonary disease. 4. Severe pain. 5. Degenerative disk disease of the neck. 6. Leukocytosis secondary to infection and IV steroids. 7. Daily alcohol use. 8. Elevated blood pressure, on medications. HOSPITAL COURSE: This is an 81-year-old female who presented to the Emergency Room with greenish sputum and a cough of 6-day duration. She was found to have right basilar infiltrate and was started on ceftriaxone and . She is also given one dose of 125 mg of Solu-Medrol. She initially had a good response to the white count, but then I believe the Solu-Medrol caused her white blood cell count to go back up. She also complained of chest pain and was seen by Cardiology and it was felt to be an AK was ruled out. She had complained of severe neck pain after being seen in chiropractor's office and subsequent x-rays revealed [id number] degenerative disk disease. Discouraged her from any type of high velocity manipulation and encouraged to massage and heat and Tylenol Arthritis. She also admits to drinking whisky daily with her coffee, which she states helps with her secretions and cough and I did not recommend that to her either. PHYSICAL EXAMINATION: DISCHARGE VITAL SIGNS: 132/80, pulse 67, respirations 19, temperature 98.4, pulse ox 95% on room air. GENERAL: The patient was feeling well enough to go outside and look at the solar eclipse. Her color was good. She does have a little bit of wet cough. LUNGS: With few crackles in the right base, otherwise clear. CARDIOVASCULAR: Regular rhythm and rate. EXTREMITIES: Without edema. DISPOSITION: To home. She will go home on [place]. Discourage tobacco and alcohol use and encouraged her to follow up for her neck for degenerative disk disease of her neck with primary care physician and [facility]. GUANAKO GRIFFITHS DO DR: BHARTI/dimitry JOB#: [id number] / [id number]
== END 2016-10-15 16:20 | disposition home or self-care (01) | DRG 682 ==
LOC: ER 14:21 → 1 SOUTH 16:42
PROVIDERS: ADMIT Internal Medicine; ATTEND Internal Medicine
DX: N17.9 Acute kidney failure, unspecified (principal); J18.9 Pneumonia, unspecified organism; E44.0 Moderate protein-calorie malnutrition; J44.0 Chronic obstructive pulmonary disease with (acute) lower respiratory infection; J44.1 Chronic obstructive pulmonary disease with (acute) exacerbation; M50.30 Other cervical disc degeneration, unspecified cervical region; F41.1 Generalized anxiety disorder; I10 Essential (primary) hypertension; M15.9 Polyosteoarthritis, unspecified; F17.210 Nicotine dependence, cigarettes, uncomplicated; E87.6 Hypokalemia; Z90.49 Acquired absence of other specified parts of digestive tract; Z90.89 Acquired absence of other organs; Z88.8 Allergy status to other drugs, medicaments and biological substances; Z79.82 Long term (current) use of aspirin; Z79.899 Other long term (current) drug therapy; Z68.20 Body mass index [BMI] 20.0-20.9, adult
CPT/HCPCS: 36415; 71010; 71020; 72052; 80048; 80053; 81001; 82274; 83605; 83880; 84484; 85025; 85027; 85610; 87040; 87086; 93005; 94640; 96361; 96365; 96375; J0456; J0696; J2930; J7050; J7620; Q0177; 97116; 97530; 99285-25; J7030